=== PATIENT | female | born 1950 | race Caucasian/White ===

== ENCOUNTER 2024-03-11 10:00 | Emergency (ER) | payer MEDICARE ==
[~2024-03-11] VITALS: Ht 160 cm; Wt 51.0 kg
[~2024-03-11 10:00] MED LIST: ARICEPT10 M1 PO; BUSPIRONE5 MG PO; CARBIDOPA/LEVODOPA PO; ESCITALOPRAM20 MG PO; FLUTICASONE P15.8 ML NS; LANTUS SOLOS100 U/ML SQ; LEVOCETIRIZINE D5 MG PO; LISINOPRIL20 MG PO; METFORMIN HYD1000 MG PO; MYSOLINE50 M1 PO; NEURONTIN300 M1 PO; OMEPRAZOLE40 MG PO; ROSUVASTATIN CA10 MG PO; SUCRALFATE1 G1 PO; SYNTHROID25 MCG PO
[2024-03-11] MEDS ORDERED: RYBELSUS3 MG PO (10:13)
[2024-03-11] MEDS ORDERED: ATARAX 10MG10 MG/TAB PO (10:15)
[2024-03-11] MEDS ORDERED: Morphine 4 MG/ML VIAL IV PRN (11:30)
[2024-03-11 14:21] LABS: BASO # 0.05 K/mm3 (0.02-0.10); EOS # 0.43 K/mm3 (0.04-0.40); EOS % 4.8 % (1.0-5.0); HEMATOCRIT 37.2 % (37.0-47.0); HEMOGLOBIN 12.4 g/dL (12.5-16.0); LYMPH# 1.85 K/mm3 (1.50-4.00); MEAN CELL VOLUME 86 fl (78-100); MEAN CORPUSCULAR HEMOGLOBIN 29 pg (27-31); MEAN CORPUSCULAR HGB CONC 33 g/dL (33-37); MONO # 0.68 K/mm3 (0.20-0.80); NEU # 5.92 K/mm3 (1.40-6.50); PLATELET COUNT 182 K/mm3 (130-400); RED BLOOD COUNT 4.35 M/mm3 (4.10-5.30); RED CELL DISTRIBUTION WIDTH 12.2 % (11.5-14.5); WHITE BLOOD COUNT 8.9 K/mm3 (4.8-10.8)
[2024-03-11 14:24] LABS: ALBUMIN 3.9 g/dL (3.4-4.8); SODIUM 137 mmol/L (136-145)
[2024-03-11 14:25] LABS: CALCIUM 8.6 mg/dL (8.3-10.5)
[2024-03-11 14:27] LABS: GLUCOSE 140 mg/dL (65-105); TOTAL PROTEIN 6.6 g/dL (6.2-8.1)
[2024-03-11 14:28] VITALS: BP 158/79
[2024-03-11 14:28] LABS: CARBON DIOXIDE 24 mmol/L (23-31); TOTAL BILIRUBIN 0.4 mg/dL (0.2-1.2)
[2024-03-11 14:30] LABS: URINE APPEARANCE CLOUDY (CLEAR); URINE COLOR YELLOW (YELLOW)
[2024-03-11 14:31] LABS: URINE BILIRUBIN NEGATIVE (NEGATIVE); URINE BLOOD NEGATIVE (NEGATIVE); URINE GLUCOSE NEGATIVE (NEGATIVE); URINE KETONE NEGATIVE (NEGATIVE); URINE LEUKOCYTE ESTERASE TRACE (NEGATIVE); URINE MUCUS PRESENT (NOT PRESENT); URINE NITRATE NEGATIVE (NEGATIVE); URINE PROTEIN(semi-quant) 2+ (NEGATIVE)
[2024-03-11 14:32] LABS: AST-SGOT 16 U/L (5-34)
[2024-03-11 14:35] LABS: ALT/SGPT < 6 U/L (0-55)
== END 2024-03-11 14:37 | disposition short-term general hospital (02) ==
LOC: ED 10:00
PROVIDERS: Physician Assistant
DX: S72.002A Fracture of unspecified part of neck of left femur, initial encounter for closed fracture (principal); W01.0XXA Fall on same level from slipping, tripping and stumbling without subsequent striking against object, initial encounter; Y93.01 Activity, walking, marching and hiking; Y92.009 Unspecified place in unspecified non-institutional (private) residence as the place of occurrence of the external cause
CPT/HCPCS: A4314; J2270

== ENCOUNTER 2024-04-09 14:19 | Emergency (ER) | payer MEDICARE, OTHER ==
[~2024-04-09] VITALS: Ht 157.5 cm; Wt 55.0 kg
[~2024-04-09 14:19] MED LIST changes: +ATARAX 10MG10 MG/TAB PO; +RYBELSUS3 MG PO
[2024-04-09 16:31] VITALS: BP 116/68
== END 2024-04-09 16:33 | disposition home or self-care (01) ==
LOC: ED 14:19
DX: M25.552 Pain in left hip (principal); Z87.81 Personal history of (healed) traumatic fracture

== ENCOUNTER → 2024-06-24 | Outpatient (REF) | payer MEDICARE, OTHER | LOC: LAB 04:15 | DX: E11.9 Type 2 diabetes mellitus without complications (principal) ==

== ENCOUNTER → 2024-08-12 | Outpatient (REF) | payer MEDICARE, OTHER ==
[2024-08-12 14:42] LABS: URINE APPEARANCE CLEAR (CLEAR); URINE COLOR YELLOW (YELLOW)
[2024-08-12 14:45] LABS: URINE BILIRUBIN NEGATIVE (NEGATIVE); URINE BLOOD NEGATIVE (NEGATIVE); URINE GLUCOSE 2+ (NEGATIVE); URINE KETONE NEGATIVE (NEGATIVE); URINE LEUKOCYTE ESTERASE NEGATIVE (NEGATIVE); URINE NITRATE NEGATIVE (NEGATIVE); URINE PROTEIN(semi-quant) 2+ (NEGATIVE)
[2024-08-12 14:46] LABS: URINE WBC 0-1 /hpf (0-3)
== END ==
LOC: LAB 14:17
PROVIDERS: Family Medicine
DX: N39.0 Urinary tract infection, site not specified (principal)